=== PATIENT | female | born 1955 | race Caucasian/White ===

== ENCOUNTER 2017-03-06 11:29 | Emergency (ER) | payer OTHER ==
[~2017-03-06] VITALS: Ht 157.5 cm; Wt 71.8 kg
[2017-03-06 11:32] VITALS: BP 138/82; PULSE 60; RESP 16; O2SAT 100
--- NOTE | 2017-03-06 11:39 | ED.REPORT ---
HPI-Abd Pain F 40 and Over Date of Service Mar 06, 2017 ED Provider: Campbell Hu MD 61-year-old female past medical history of GERD without gastritis. presents today with 7/10 midepigastric pain that has been constant since this morning. Nothing seems to alleviate the pain or make it worse. She was able to eat this morning but she states that her pain level was unaffected by eating. 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 She states that her pain today seems to be constant and radiates along the diaphragm bilaterally. She takes Nexium each morning for acid reflux. She states her doctor had told her to begin taking it nightly as well, and she was doing this for a while however, she felt considerably better and for this reason she discontinued nightly use of Nexium. Nursing Notes Stated Complaint: ABDOMINAL PAIN Chief Complaint: Female Abdominal Pain Nursing Notes Reviewed: Yes Allergies: Coded Allergies: meperidine (Verified Allergy, Intermediate, itching, 03/06/17) Contrast Media (Verified Adverse Reaction, Severe, sneezing for many hours , 03/06/17) General Time Seen by MD: 11:36 Chief Complaint Abdominal pain Hx Obtained From: Patient Sudden in Onset?: Yes Onset Occurred: 1 - 4 hours ago Symptom Duration: Since onset Location: : Epigastric Severity: Current: Pain level 7 out of 10 Associated with: Denies: Chest pain, Chills, Constipation, Diarrhea, Fever, Nausea, Shortness of breath, Urinary frequency, Urinary tract symptoms, Vomiting Risk Factors )( AAA Risk Stratification Risk factors reviewed Ectopic Risk Stratification Risk factors reviewed CAD Risk Stratification Risk factors reviewed TAD Risk Stratification Risk factors reviewed Past Medical History Past Medical History Reports: GERD Ambulatory Status Independent Review of Systems Basic Review of Systems Hematologic: No bleeding, No bruising Complete sys rev & neg: except as marked. Physical Exam Vital Signs Vital Signs (First) Date Time Temp Pulse Resp B/P Pulse Ox O2 Delivery O2 Flow Rate FiO2 03/06/17 11:32 36.2 60 16 138/82 100 Room Air Initial VS: Reviewed Head / Eyes: Atraumatic, Normocephalic ENT: Mucous membranes moist, Conjunctiva normal, No scleral icterus Neck: Supple, Non-tender, Full range of motion Extremities: Vascular intact, Neuro intact, No swelling, No tenderness Skin: Warm, Dry, No cyanosis Neurologic: Alert, Oriented, Nonfocal Psychiatric: Mood/affect normal, Behavior normal, Normal thought content Abdomen: Atraumatic, Soft, Non-tender, McBurney's non-tender, No guarding, No rebound, BS normoactive, No distention, No palpable mass, No pulsatile mass Tenderness/Guarding/Rebound: Positive: Tender epigastric, Negative: Tender LLQ..., Tender LUQ..., Tender RLQ..., Tender RUQ..., Tender diffuse, Tender periumbilical, Tender suprapubic Interpretation & Diagnostics Lab Results Interpretation Result Diagram: 03/06/17 1230 03/06/17 1230 Test 03/06/17 12:30 White Blood Count 6.1th/mm3 (3.8-10.1) Red Blood Count 4.46mil/mm3 (3.90-5.20) Hemoglobin 14.0g/dL (12.0-15.6) Hematocrit 41.5% (35.0-46.0) Mean Corpuscular Volume 93.0fL (81-100) Mean Corpuscular Hemoglobin 31.4pg (27.0-35.0) Mean Corpuscular Hemoglobin Concent 33.7% (32.0-37.0) Red Cell Distribution Width 12.2% (12.3-15.4) Platelet Count 269bil/L (150-400) Neutrophils (%) (Auto) 40.3% (40-74) Lymphocytes (%) (Auto) 49.6% (14-46) Monocytes (%) (Auto) 8.3% (4-12) Eosinophils (%) (Auto) 0.8% (0-5) Basophils (%) (Auto) 1.0% (0-3) Sodium Level 139mEq/L (134-144) Potassium Level 4.2mEq/L (3.5-5.2) Chloride Level 101mEq/L (97-108) Carbon Dioxide Level 24mmol/L (18-29) Blood Urea Nitrogen 14mg/dL (8-27) Creatinine 0.86mg/dL (0.57-1.00) Estimat Glomerular Filtration Rate 96mL/min (>59) Glucose Level 147mg/dL (60-99) Calcium Level 9.6mg/dL (8.5-10.1) Magnesium Level 2.1mg/dL (1.6-2.6) Total Bilirubin 0.2mg/dL (0.0-1.2) Aspartate Amino Transf (AST/SGOT) 15U/L (0-50) Alanine Aminotransferase (ALT/SGPT) 9U/L (0-32) Alkaline Phosphatase 67U/L (25-165) Troponin T 0.010ug/L (0.0-0.011) Total Protein 7.3g/dL (6.4-8.4) Albumin 4.1g/dL (3.4-5.0) Lipase 27U/L (13-60) Hold Segura Top Tube Received (Received) ECG Interpretation ECG Interpretation: No ST-T changes. Time: 12:34 Interpreted by: ED physician Normal ECG Interpretation: Normal rate (64), Normal sinus rhythm Re-Eval/Medical Decision Med Decision/Clinical Course The patient's significant history of GERD, combined with physical exam findings it seems highly likely that her symptoms are related to gastritis. For this reason, a GI cocktail was ordered. After the cocktail a patient states that she felt significantly better however is still unsure about the diagnosis of gastritis, and would like a full evaluation with lab work to rule out other sources for pathology as she is here in the hospital today. Her lab work revealed benign findings, an EKG was normal. No concern for pathology outside of gastritis and no need for further workup at this time. Counseled Regarding: Diagnosis, Lab results, Need for follow-up, When/why to return to ED Discharge & Departure Primary Impression: Gastritis Gastritis type: unspecified gastritis Chronicity: acute Gastritis bleeding : without bleeding Qualified Code: K29.00 - Acute gastritis without bleeding Disposition: Home Discharge Condition All VS Reviewed: Yes Condition: Stable Patient Instructions: Gastritis (ED) Additional Instructions: Please take Nexium as previously prescribed 40 mg in the morning 30 minutes before breakfast and 40 mg in the evening 30 minutes before dinner. Take antacids as needed for breakthrough pain/discomfort Avoid spicy and acidic foods as this may aggravate the lining of the stomach. Begin morning and/or nightly meditation to decrease anxiety as this plays a large role in today's diagnosis. Please follow-up with a primary care provider and gastroenterology upon returning to [place] [facility] Provider for APC: Campbell Hu MD Attending Statement Discussed patient with resident. I evaluated patient independently and agree with plan as above. In brief 61-year-old female history of gastritis presenting with epigastric pain that has been constant for last 5 hours. She has history of GERD. She denied any chest pain or any other associated symptoms. Her pain resolved with GI cocktail. Her EKG and troponins were negative. Unremarkable. She had no melena or bright red blood per rectum. Discharged home with plans to increase her PPI to twice a day take Tums as needed. Return precautions given. Campbell Hu MD Mar 06, 2017 11:38 Padilla Mukherjee DO Mar 06, 2017 12:03 EDITA FORBES Mar 06, 2017 13:06
[2017-03-06] MEDS ORDERED: LidocaineVisc 2%:Antacid 1:1 10 mL Syringe PO ONE (11:50)
[2017-03-06 12:38] LABS: EOSINOPHILS % (AUTO) 0.8 % (0-5); MONOCYTES % (AUTO) 8.3 % (4-12); Mean Corpuscular Hemoglobin 31.4 pg (27.0-35.0); NEUTROPHILS % (AUTO) 40.3 % (40-74); Platelet Count 269 bil/L (150-400)
[2017-03-06 13:03] LABS: TROPONIN T 0.01 ug/L (0.0-0.011)
[2017-03-06 13:14] LABS: Magnesium 2.1 mg/dL (1.6-2.6)
[2017-03-06 14:00] VITALS: BP 126/86; PULSE 71; O2SAT 97
[2017-03-06] MEDS ORDERED: SUCR1ORA2 PO (20:27)
[2017-03-11] MEDS ORDERED: ESOM40CA41 PO (15:12)
== END 2017-03-06 14:15 | disposition home or self-care (01) ==
LOC: SED 11:29
DX: K29.00 Acute gastritis without bleeding (principal); K21.9 Gastro-esophageal reflux disease without esophagitis; Z88.5 Allergy status to narcotic agent; Z91.041 Radiographic dye allergy status

== ENCOUNTER 2017-03-06 17:32 | Emergency (ER) | payer OTHER ==
[~2017-03-06] VITALS: Ht 157.5 cm; Wt 71.8 kg
[2017-03-06 17:34] VITALS: BP 159/80; PULSE 59; RESP 20; O2SAT 100
[2017-03-06] MEDS ORDERED: LidocaineVisc 2%:Antacid 1:1 10 mL Syringe PO ONE (20:20)
[2017-03-06] MEDS ORDERED: SUCR1ORA2 PO (20:27)
--- NOTE | 2017-03-06 20:33 | ED.REPORT ---
HPI-General Illness Date of Service Mar 06, 2017 ED Provider: Neil Sewell MD The patient is a 61 year old female w/ hx of GERD who presents to the ED c/o of epigastric abdominal discomfort progressively worse since 1500 after eating lunch. She was seen earlier today by Dr. Hu at which time her labs were unremarkable. She was treated with GI cocktail w/ significant improvement and no imaging studies were obtained. Her pain has escalated, she cannot sleep or find any comfortable position. She denies vomiting. She admits that she is occasionally taking NSAIDs. She is taking omeprazole 40 mg twice a day. Nursing Notes Stated Complaint: ABDOMINAL PAIN Chief Complaint: Female Abdominal Pain Nursing Notes Reviewed: Yes Allergies: Coded Allergies: meperidine (Verified Allergy, Intermediate, itching, 03/06/17) Contrast Media (Verified Adverse Reaction, Severe, sneezing for many hours , 03/06/17) Scheduled Sucralfate Susp (Carafate Susp) 1 Gm/10 Ml Oral.susp 1 GM PO QID General Time Seen by MD: 19:36 Chief Complaint Abdominal pain Hx Obtained From: Patient Sudden in Onset?: Yes Onset Occurred: 1 - 4 hours ago Symptom Duration: Since onset Location: : Abdomen Quality: Painful Severity: Current: Moderate Recent Healthcare: Recent doctor visit Similar Sx Previous: Yes Past Medical History Past Medical History Reports: GERD Past Surgical History denies Smoking History Unknown if Ever Smoker Social History Other Social History: Good social support, , From out of town Ambulatory Status Independent Review of Systems Full Review of Systems Constitutional: Denies: Fever GI: Reports: Abdominal pain, Denies: Nausea, Vomiting Complete sys rev & neg: except as marked. Physical Exam Vital Signs Vital Signs Date Time Temp Pulse Resp B/P Pulse Ox O2 Delivery O2 Flow Rate FiO2 03/06/17 22:32 71 16 147/99 97 Room Air 03/06/17 17:34 36.5 59 20 159/80 100 Room Air Initial VS: Reviewed General/Constitutional: Awake, Alert, No acute distress Head / Eyes: Atraumatic, Normocephalic, PERRL, EOMI Neck: Atraumatic, Supple Respiratory / Chest: Atraumatic, Breath sounds NL, Breath sounds = bilat, No respiratory distress Cardiovascular: Heart rate NL, Regular rhythm, Heart sounds NL, No gallop, No murmurs, No rubs Tenderness/Guarding/Rebound: Positive: Tender RUQ..., Tender epigastric pain worse with deep inspiration Upper Extremities Upper Extremity / MS: Atraumatic, Inspection NL, No deformity Lower Extremity / Pelvis / MS: Atraumatic, Inspection NL, No deformity Skin: Atraumatic, Warm, Dry Neurologic: Oriented X3, Speech NL, No motor deficits Interpretation & Diagnostics Lab Results Interpretation Test 03/06/17 19:56 03/06/17 20:44 Hold Purple Top Tube Received (Received) Hold Blue Top Tube Received (Received) Hold Corrigan Top Tube Received (Received) Hold Urine Received (Received) Re-Eval/Medical Decision Med Decision/Clinical Course The patient is a 61 year old female w/ hx of GERD who presents to the ED c/o of epigastric abdominal discomfort progressively worse since 1500 after eating lunch. She was seen earlier today by Dr. Hu at which time her labs were unremarkable. She was treated with GI cocktail w/ significant improvement and no imaging studies were obtained. Her pain has escalated, she cannot sleep or find any comfortable position. She denies vomiting. She admits that she is occasionally taking NSAIDs. She is taking omeprazole 40 mg twice a day. Here in the emergency department the patient is afebrile stable vital signs and examination as above. ABDOMINAL US IMPRESSION: Cholelithiasis without definite evidence of cholecystitis. 2020: Plan for Zofran and GI cocktail. Did not repeat labs because labs earlier today were reviewed and were unremarkable. 2100: Spoke with VIKKI Lua, who agrees with the plan and will see the patient in the next week. Plan to refer patient to Dr. Quesada and start on Sucralfate. 0: Pt rechecked. Pain is significantly reduced but still present. Informed pt of normal US results and plan for discharge. Pt understands and agrees with plan. Overall presentation seems consistent with gastritis versus peptic ulcer disease. No evidence of perforation or acute surgical process. The patient does have gallstones present there is no evidence of biliary ductal dilatation or acute cholecystitis. I doubt that her pain is biliary in nature though I have communicated findings to the patient and she will follow this up with her regular physician when she gets home. She has been started on sucralfate for breakthrough symptoms and advised to avoid NSAIDs and any other potential dietary triggers which were reviewed in detail. At this time, I feel the patient is appropriate for discharge. Prior to discharge follow-up and return precautions were reviewed in detail with the patient who verbalized understanding and agreement with the plan. The patient was discharged in stable condition. Counseled Regarding: Diagnosis, Lab results, Need for follow-up, When/why to return to ED Discharge & Departure Primary Impression: Gastritis Gastritis type: unspecified gastritis Chronicity: unspecified Gastritis bleeding: without bleeding Qualified Code: K29.70 - Gastritis, unspecified, without bleeding Additional Impressions: Peptic ulcer disease Gallstones GERD (gastroesophageal reflux disease) Esophagitis presence: esophagitis presence not specified Qualified Code: K21.9 - Gastro-esophageal reflux disease without esophagitis Epigastric pain Disposition: Home Discharge Condition All VS Reviewed: Yes Condition: Stable Patient Instructions: Gastritis (ED) Additional Instructions: Thank you for seeking care at the emergency room. It is difficult for us to make definitive diagnoses in the ED but we believe that you are experiencing of gastritis. Our primary goal today in the ED was to evaluate you for any life-threatening conditions. Your evaluation was reassuring.You will need to have a GI doctor do an endoscopy and look inside your stomach. I have attached a referral. I am sending you home with sucralfate to take as directed. Avoid fatty foods, spicy foods, ibuprofen and naproxen as they will irritate your symptoms. Do not eat within 3 hours of bedtime. Return to the Emergency Department for any new or worsening symptoms including increased pain, blood in your stool, dizziness, and vomiting. I hope you feel better soon! Referrals: OTHER,PHYSICIAN (PCP) Asad Quesada MD Attestation Portion of this note were transcribed by Clarissa Frazier. I, Dr. Sewell, personally performed the history, physical exam, and medical decision-making: I reviewed and confirmed the accuracy for the information in the transcribed note. Signed by: florence Sidhu, 03/06/17 2200 copies to: Asad Quesada MD, Beck O MD Mar 06, 2017 20:33 Clarissa Frazier Mar 06, 2017 20:45
[2017-03-06 22:32] VITALS: BP 147/99; PULSE 71; RESP 16; O2SAT 97
--- NOTE | 2017-03-06 22:55 | DRSVH ---
PROCEDURE: US ABDOMEN, LIMITED ([id number]) INDICATIONS: Right upper quadrant pain TECHNIQUE: Real-time focused scanning was performed of the right upper quadrant, with image documentation. COMPARISON: None. FINDINGS: There is numerous small echogenic mobile shadowing gallstones within the gallbladder. Gallbladder wa ll is at the upper limits of normal measuring 3-4 mm. No pericholecystic fluid. No definite increas ed vascularity within the gallbladder wall on color Doppler interrogation. No intra-or extrahepatic biliary duct dilatation. Common bile duct measures up to 4 mm. The liver demonstrates no focal hepatic lesions. Pancreas demonstrates no peripancreatic fluid colle ctions. IMPRESSION: 1. Cholelithiasis without definite evidence of cholecystitis. Dictated by: Bryson Cotton M.D. on 03/06/2017 at 22:50 Approved by: Bryson Cotton M.D. on 03/06/2017 at 22:53
[2017-03-11] MEDS ORDERED: ESOM40CA41 PO (15:12)
== END 2017-03-06 22:34 | disposition home or self-care (01) ==
LOC: SED 17:32
DX: K29.70 Gastritis, unspecified, without bleeding (principal); K27.9 Peptic ulcer, site unspecified, unspecified as acute or chronic, without hemorrhage or perforation; K80.20 Calculus of gallbladder without cholecystitis without obstruction; K21.9 Gastro-esophageal reflux disease without esophagitis; Z88.5 Allergy status to narcotic agent; Z91.041 Radiographic dye allergy status

== ENCOUNTER → 2017-03-12 | Day surgery (SDC) | payer OTHER ==
[~2017-03-12] VITALS: Ht 157.5 cm; Wt 70.0 kg
[~2017-03-12] MED LIST: 0.9% Sodium Chloride 1,000 ML IV ONE; ESOM40CA41 PO; SUCR1ORA2 PO; fentaNYL-PF 50 mCg/mL 2 mL Inj ONE
[2017-03-12 14:49] VITALS: BP 121/79; PULSE 65; RESP 14; O2SAT 99
[2017-03-12 15:28] VITALS: BP 117/70; PULSE 63; RESP 16; O2SAT 97
[2017-03-12 15:45] VITALS: BP 106/67; PULSE 64; RESP 16; O2SAT 98
--- NOTE | 2017-03-12 16:01 | ENDO ---
[address] [address] ENDOSCOPY PROCEDURE PATIENT: ROYCE CASTRO : 1955 MR#: [id number] ADMIT: 03/12/2017 JOB ID: [id number] DATE OF SERVICE: 03/12/2017 TYPE OF OPERATION: Esophagogastroduodenoscopy with biopsy. PREOPERATIVE DIAGNOSIS(ES): Epigastric pain. POSTOPERATIVE DIAGNOSIS: Moderate nonerosive gastritis. ANESTHESIA: Fentanyl 100 mcg, Versed 4 mg IV administered. COMPLICATIONS: None. BLOOD LOSS: Minimal. DESCRIPTION OF PROCEDURE: After risks and benefits explained to the patient, informed consent was obtained. After anesthesia administered, upper endoscope was then inserted in mouth, intubating the esophagus, stomach, second portion of duodenum. Mucosa carefully examined. After procedure was done, the scope withdrawn, procedure terminated. FINDINGS: Upon inspection of esophagus, esophagus was normal without masses, ulcers, or lesions. Z-line located at 35 cm from incisors. Upon entering the stomach there was moderate nonerosive gastritis that was seen. No masses or ulcers were seen. Retroflexion was normal. Duodenal bulb, first and second portion were normal. Biopsies taken at the antrum, body and distal esophagus. IMPRESSIONS: Moderate nonerosive gastritis. RECOMMENDATION: Await pathology results. Follow up in GI clinic as needed.
--- NOTE | 2017-03-18 09:32 | PATH ---
SURGICAL PATHOLOGY Attending Physician:Asad Quesada MD CASE STATUS: Signed Out PATIENT NAME: ROYCE CASTRO PID: [id number] : 1955 DATE COLLECTED:03/12/2017 00:00 SPECIMEN: 1: Stomach, Antrum, Biopsy 2: Gastric, Biopsy 3: Esophagus, Biopsy CLINICAL HISTORY: 1). ANTRUM BIOPSY 2). GASTRIC BODY BIOPSY 3). DISTAL ESOPHAGUS BIOPSY FINAL DIAGNOSIS: 1.ANTRUM BIOPSY: REACTIVE GASTROPATHY, ANTRAL MUCOSA. Negative for Helicobacter organisms on H&E stains. Negative for intestinal metaplasia. Negative for dysplasia and malignancy. 2.GASTRIC BODY BIOPSY: BODY-TYPE MUCOSA WITH NO DIAGNOSTIC ALTERATIONS. Negative for Helicobacter organisms on H&E stains. Negative for intestinal metaplasia. Negative for dysplasia and malignancy. 3.DISTAL ESOPHAGUS BIOPSY: SQUAMOUS MUCOSA WITH NO DIAGNOSTIC ALTERATIONS. Negative for intestinal/Jade' s metaplasia. Negative for dysplasia and malignancy. ICD10 K29.70 GROSS DESCRIPTION: Received are three formalin-filled containers, each labeled with the patient' s name. 1. Received in formalin, labeled with the patient' s name and "antrum biopsy", are two fragments of aguilar, soft tissue ranging in size from 0.2 x 0.1 x 0.1 cm to 0.3 x 0.2 x 0.1 cm. All fragments are totally submitted in cassette 1A. 2. Received in formalin, labeled with the patient' s name and "gastric body", are two fragments of aguilar, soft tissue ranging in size from 0.1 x 0.1 x 0.1 cm to 0.2 x 0.1 x 0.1 cm. All fragments are totally submitted in cassette 2A. 3. Received in formalin, labeled with the patient' s name and "distal esophagus biopsy", are two fragments of aguilar, soft tissue ranging in size from 0.1 x 0.1 x 0.1 cm to 0.2 x 0.1 x 0.1 cm. All fragments are totally submitted in cassette 3A. ([id number]) MICRO DESCRIPTION: See diagnosis. ICD-9 CODES: CPT CODES: 1: 59790 2: 59973 3: 64731 Electronically Signed Out Josie Smith MD [facility] [address] [place] [address] Division, [place] [address] Technical component performed at [facility], [address], [place], [address]
== END | disposition home or self-care (01) ==
LOC: END 00:26
PROVIDERS: ATTEND Internal Medicine Gastroenterology
DX: K29.70 Gastritis, unspecified, without bleeding (principal); K21.9 Gastro-esophageal reflux disease without esophagitis; R10.13 Epigastric pain
CPT/HCPCS: 43239; G0500; J2250; J3010; J7030